=== PATIENT | male | born 1970 | race Caucasian/White ===

== ENCOUNTER → 2018-01-28 | Outpatient (CLI) | payer BC ==
--- NOTE | 2018-01-28 10:37 | US ---
EXAM DESCRIPTION: Abdomen,Complete: Ultrasound. CLINICAL HISTORY: ABD PAIN COMPARISON: None Available. TECHNIQUE: Transabdominal scannin-dimensional and Doppler modes. Technically difficult study due to intestinal gas. FINDINGS: Gallbladder: Normal size with multiple echogenic objects which are mobile with patient change in position. Minimal acoustic shadowing. Largest gallstone diameter 7 mm. No wall thickening, 19 mm. No wall fluid. Nontender with transducer pressure. Common bile duct: 5.5 mm normal caliber Liver: Long axis of right lobe is 16.2 cm. Normal echogenicity. Normal intrahepatic ducts. Hepatopedal flow in the portal vein which is normal caliber. Smooth capsule. No ascites. Pancreas: Not visualized due to intestinal gas.. Abdominal aorta: Normal caliber from the proximal segment to the distal bifurcation. IVC: visualized; normal caliber. Spleen normal echogenicity; long axis measurement is 10.7 cm. Right kidney: 12.9 cm long axis with normal cortical thickness and echogenicity. No hydronephrosis or perinephric fluid. Normal vascularity. Left kidney: 12.3 cm long axis with normal cortical thickness and echogenicity. No hydronephrosis or perinephric fluid. Normal vascularity. IMPRESSION: 1. Cholelithiasis of the gallbladder with no wall thickening. Nontender with transducer pressure. No abnormal fluid. 2. Liver and spleen are unremarkable. Pancreas not visualized due to intestinal gas. Normal caliber of the IVC and abdominal aorta. No ascites. 3. Negative ultrasound findings in the bilateral kidneys. Electronically signed by: Jerome Wynne MD 01/28/2018 10:36 AM CDT
== END ==
LOC: US 08:13
PROVIDERS: ATTEND Family Medicine
DX: R10.84 Generalized abdominal pain (principal); K80.20 Calculus of gallbladder without cholecystitis without obstruction

== ENCOUNTER → 2019-04-23 | Outpatient (CLI) | payer BC ==
--- NOTE | 2019-04-24 19:43 | US ---
EXAM DESCRIPTION: Soft Tissue,Abdomen: ULTRASOUND. CLINICAL HISTORY: Localized swelling, mass and lump, unspecified mass in right upper quadrant after eating. Cholecystectomy in the past year. Pain in the mid upper abdomen. COMPARISON: Ultrasound abdomen December 2017. TECHNIQUE: Transabdominal scanning: arroyo-scale mode. Doppler mode. FINDINGS: Scanning of the right upper quadrant. No dominant solid mass or distinct cyst. No large calcifications. Same findings after scanning in the area of pain in the mid upper abdomen. Abdominal wall unremarkable in both regions. IMPRESSION: No ultrasound abnormality of the abdominal wall or underlying soft tissues in the regions of interest. Electronically signed by: Jerome Wynne MD 04/24/2019 7:42 PM [facility]
== END ==
LOC: US 09:48
PROVIDERS: ATTEND Family Medicine
DX: R22.9 Localized swelling, mass and lump, unspecified (principal)

== ENCOUNTER → 2019-11-11 | Outpatient (CLI) | payer BC | LOC: GMAM 10:09 | PROVIDERS: ATTEND Family Medicine | DX: Z12.5 Encounter for screening for malignant neoplasm of prostate (principal); E29.1 Testicular hypofunction; E55.9 Vitamin D deficiency, unspecified; D51.3 Other dietary vitamin B12 deficiency anemia ==